=== PATIENT | male | born 2005 | race Asian ===

== ENCOUNTER 2025-10-01 19:03 | Emergency (ER) | payer MEDICAID ==
[~2025-10-01] VITALS: Ht 175.3 cm; Wt 74.0 kg
[2025-10-01 19:08] VITALS: TEMP 36.7; O2SAT 98
[2025-10-01 20:41] LABS: BASOPHILS % 0.5 % (0.0-2.0); EOSINOPHILS % 3.6 % (0.0-5.0); HEMATOCRIT. 47.2 % (42.0-52.0); HEMOGLOBIN. 15.3 g/dL (14.0-18.0); LYMPHOCYTES % 15.7 % (20.0-50.0); MEAN PLATELET VOLUME 8.7 fl (7.4-10.4); MONOCYTES % 5.3 % (2.0-8.0); NEUTROPHILS % 74.9 % (40.0-76.0); PLATELET 251 x1000/uL (130-400); RED BLOOD CELL COUNT 6.07 mill/uL (4.7-6.1); RED CELL DISTRIBUTION WIDTH 13.9 % (11.6-14.6)
[2025-10-01 20:45] LABS: CLARITY URINE CLEAR (CLEAR); COLOR URINE YELLOW (YELLOW); GLUCOSE URINE NEGATIVE (NEGATIVE); KETONES URINE NEGATIVE (NEGATIVE); LEUKOCYTE ESTERASE URINE NEGATIVE (NEGATIVE); NITRITE URINE NEGATIVE (NEGATIVE); OCCULT BLOOD URINE NEGATIVE (NEGATIVE); PH URINE 6.0 (4.5-8.0); PROTEIN URINE NEGATIVE (NEGATIVE); SPECIFIC GRAVITY URINE 1.008 (1.005-1.030); UROBILINOGEN URINE 0.2 E.U./dL (0.2-1.0)
[2025-10-01 20:54] LABS: *AMPHETAMINES SCREEN URINE NEGATIVE (NEGATIVE); *BARBITURATES SCREEN URINE NEGATIVE (NEGATIVE); *BENZODIAZEPINES SCREEN URINE NEGATIVE (NEGATIVE); *COCAINE SCREEN URINE NEGATIVE (NEGATIVE); CANNABINOID URINE SCREEN NEGATIVE (NEGATIVE); ECSTASY MDMA SCREEN URINE NEGATIVE (NEGATIVE); METHADONE URINE SCREEN NEGATIVE (NEGATIVE); OPIATES URINE SCREEN NEGATIVE (NEGATIVE); PHENCYCLIDINE URINE SCREEN NEGATIVE (NEGATIVE)
[2025-10-01 21:20] LABS: CREATININE 1.0 mg/dL (0.6-1.3)
[2025-10-01 21:21] LABS: ETHANOL BLOOD < 10 mg/dL (<10); PROTEIN TOTAL 8.5 g/dL (6.0-8.3); TROPONIN I HIGH SENSITIVITY < 4 ng/L (3.0-53); UREA NITROGEN BLOOD < 5 mg/dL (9-23)
[2025-10-01 21:22] LABS: ASPARTATE AMINOTRANSFERASE 27 IU/L (<34); BILIRUBIN DIRECT 0.1 mg/dL (<=3.0)
[2025-10-01 21:23] LABS: BILIRUBIN TOTAL 0.5 mg/dL (0.1-1.0); PHOSPHORUS 3.8 mg/dL (2.5-4.9)
[2025-10-01 21:24] LABS: T4 FREE 1.30 ng/dL (0.89-1.76)
[2025-10-01 21:25] LABS: INR 1.0
[2025-10-01] MEDS: IOHEXOL-350 100 ML BOTTLE ONE (23:25)
[2025-10-01 23:33] VITALS: BP 118/74; PULSE 85; RESP 18; O2SAT 99
[2025-10-02] MEDS ORDERED: IOHEXOL-350 100 ML BOTTLE ONE (07:23)
== END 2025-10-01 23:36 | disposition home or self-care (01) ==
LOC: ER 19:03
DX: R07.89 Other chest pain (principal); R20.0 Anesthesia of skin; R20.2 Paresthesia of skin; R06.02 Shortness of breath; Z79.899 Other long term (current) drug therapy
CPT/HCPCS: 80076; 80305; 80048; 81003; 80320; 82550; 83880; 84439; 83690; 83735; 84100; 84443; 85025; 85610; 84484; 36415; 74174; 71045; 71275; 93005; 99285; Q9967; G0480